=== PATIENT | female | born 1970 | race Caucasian/White ===

== ENCOUNTER 2019-11-18 08:13 | Inpatient (IN) | payer BC ==
[~2019-11-18] VITALS: Ht 162.6 cm; Wt 70.4 kg
[2019-11-18] MEDS ORDERED: fentaNYL PF VIAL 100 MCG/2 ML VIAL IVP ONE (08:30)
[2019-11-18] MEDS ORDERED: IV NORMAL SALINE 1000ML BAG 1,000 ML IV ONE ×2 (08:30→11:15)
[2019-11-18] MEDS ORDERED: ONDANSETRON PF 4 MG/2 ML VIAL. IVP ONE (08:30)
[2019-11-18] MEDS ORDERED: KETOROLAC 30 MG/ML VIAL. IVP ONE (08:45)
--- NOTE | 2019-11-18 08:45 | PHYS DOC ---
Past Medical History Past Medical History: No Pertinent History Past Surgical History: , Other Additional Past Surgical Histo: uterine ablation Smoking Status: Never Smoker Alcohol Use: Occasionally General Adult EDM: Chief Complaint: MECHANICAL FALL HPI: HPI: Patient is a 49 year old female who was brought here by EMS from home for evaluation of left-sided rib pain, back pain after she fell in the bathroom. Patient says she was taking a shower, slipped, twisted her left ankle and fell down on her left side, hit her rib cage on the floor. Patient denies any head or neck injury, complaint of upper and lower back pain, denies any pelvic pain, no hip pain. Patient denies any extremity pain. Patient has been able to walk without any problem. Patient denies any loss of consciousness. Patient was given small amount of ketamine by EMS on route. Review of Systems: Review of Systems: Constitutional: Denies fever or chills. [] Eyes: Denies change in visual acuity. [] HENT: Denies nasal congestion or sore throat. [] Respiratory: Denies cough or shortness of breath. [] Cardiovascular: Denies chest pain or edema. [] GI: Denies abdominal pain, nausea, vomiting, bloody stools or diarrhea. [] : Denies dysuria. [] Musculoskeletal: Positive for left side rib pain, upper and lower back pain. Integument: Denies rash. [] Neurologic: Denies headache, focal weakness or sensory changes. [] Endocrine: Denies polyuria or polydipsia. [] Lymphatic: Denies swollen glands. [] Psychiatric: Denies depression or anxiety. [] Heart Score: Risk Factors: Risk Factors: DM, Current or recent (<one month) smoker, HTN, HLP, family history of CAD, obesity. Risk Scores: Score 0 - 3: 2.5% MACE over next 6 weeks - Discharge Home Score 4 - 6: 20.3% MACE over next 6 weeks - Admit for Clinical Observation Score 7 - 10: 72.7% MACE over next 6 weeks - Early Invasive Strategies Current Medications: Current Medications Medications (Trade) Dose Ordered Sig/Jb Start Time Stop Time Status Last Admin Dose Admin Fentanyl Citrate (Fentanyl 2ml Vial) 100 mcg 1X ONCE 11/18/19 08:30 11/18/19 08:31 DC Ketorolac Tromethamine (Toradol 30mg Vial) 30 mg 1X ONCE 11/18/19 08:45 11/18/19 08:46 UNV Ondansetron HCl (Zofran) 4 mg 1X ONCE 11/18/19 08:30 11/18/19 08:31 DC 11/18/19 08:36 4 MG Sodium Chloride 1,000 ml @ 1,000 mls/hr 1X ONCE 11/18/19 08:30 11/18/19 09:29 11/18/19 08:33 1,000 MLS/HR Allergies: Allergies: Allergies Coded Allergies Type Severity Reaction Last Updated Verified No Known Drug Allergies 11/18/19 No Physical Exam: PE: Constitutional: Well developed, well nourished, no acute distress, non-toxic appearance. [] HENT: Normocephalic, atraumatic, bilateral external ears normal, oropharynx moist, no oral exudates, nose normal. [] Eyes: PERRLA, EOMI, conjunctiva normal, no discharge. [] Neck: Normal range of motion, no tenderness, supple, no stridor. [] Cardiovascular:Heart rate regular rhythm, no murmur [] Lungs & Thorax: Bilateral breath sounds clear to auscultation [] Abdomen: Bowel sounds normal, soft, no tenderness, no masses, no pulsatile masses. [] Skin: Warm, dry, no erythema, no rash. [] Back: There is a small skin abrasion on left lateral lower rib cage, there is no crepitus. There is tenderness to palpation in the T11 and T12 area, no bony step-off. Extremities: No tenderness, no cyanosis, no clubbing, ROM intact, no edema. [] Neurologic: Alert and oriented X 3, normal motor function, normal sensory function, no focal deficits noted. [] Psychologic: Affect normal, judgement normal, mood normal. [] Current Patient Data: Vital Signs: Vital Signs Date Time Temp Pulse Resp B/P (MAP) Pulse Ox O2 Delivery O2 Flow Rate FiO2 11/18/19 08:25 97.5 52 20 97/53 (68) 99 Room Air 97.5 EKG: EKG: [] Radiology/Procedures: Radiology/Procedures: [][facility] [address] [place] [address] IMAGING REPORT Signed PATIENT: JAMIE KEITH ACCOUNT: [id number] : 1970 LOCATION: ER AGE: 49 SEX: F EXAM STATUS: REG ER ORD. PHYSICIAN: RICARDO HERRERA DO REASON: FELL IN THE SHOWER, LEFT SIDE CHEST PAIN PROCEDURE: CT CHEST WO CONTRAST CT CHEST WO CONTRAST, CT THORACIC SPINE WO CONTRAST, CT LUMBAR SPINE WO CONTRAST History: Trauma. Left chest and back pain. Technique: CT of the chest were performed with intravenous contrast. Coronal and sagittal reconstructions were performed. CT thoracic and lumbar spine was obtained. Coronal and sagittal reconstructions were performed. Exposure: One or more of the following individualized dose reduction techniques were utilized for this examination: 1. Automated exposure control 2. Adjustment of the mA and/or kV according to patient size 3. Use of iterative reconstruction technique. Comparison: None Findings: Chest: Residual thymus within the anterior mediastinum. No evidence of anterior mediastinal hematoma. No aortic intramural hematoma. No pathologic lymphadenopathy. Small left pneumothorax. Left lower lobe posterior linear opacities, likely atelectasis. No consolidation or pleural effusion. 4 mm right lower lobe pulmonary nodule (series 2 image 40). 2 mm right upper lobe pulmonary nodule (image 10). 3 mm left lower lobe pulmonary nodule (image 36). Upper abdomen: The imaged upper abdomen is unremarkable. Bones: Nondisplaced left posterior 10th rib fracture. There is adjacent subcutaneous gas. Thoracic spine CT: Normal vertebral body height and alignment. No fracture. Mild degenerative disc changes. Mild facet arthropathy. No significant canal narrowing. No neuroforaminal narrowing. Lumbar spine CT: Normal vertebral body height and alignment. No fracture. Mild multilevel degenerative disc changes most prominent L4-L5 and L5-S1. Moderate lower lumbar facet arthropathy most prominent L5-S1. No significant canal narrowing. Multilevel neuroforaminal narrowing most prominent L5-S1. Impression: Chest CT: 1. Small left pneumothorax. 2. Acute left 10th posterior rib fracture with adjacent subcutaneous gas. 3. Small pulmonary nodules. Recommend one-year follow-up if high risk. Thoracolumbar spine CT: 1. No acute fracture or subluxation of the thoracolumbar spine. FOR INTERNAL CODING PURPOSES Critical result: Findings discussed with RICARDO HERRERA at 11/18/2019 9:42 AM. RESULT CODE: (C) Electronically signed by: Thaddeus Hernandez DO (11/18/2019 9:42 AM) [id number] DICTATED and SIGNED BY: THADDEUS HERNANDEZ DO DATE: 11/18/19941 Course & Med Decision Making: Course & Med Decision Making Pertinent Labs and Imaging studies reviewed. (See chart for details) Patient is a 49-year-old female who was evaluated in the ER due to a fall in the bathroom this morning, she sustained a small pneumothorax, with 1 broken rib #10. Patient will be admitted to hospital for observation. Discussed with trauma surgeon Dr. Mcfarland, who will see patient in hospital. Discussed with Dr. Cabrera who agrees to admit the patient to hospitalist service. Jett Disclaimer: Jett Disclaimer: This electronic medical record was generated, in whole or in part, using a voice recognition dictation system. Departure Departure Impression: Primary Impression: Pneumothorax on left Additional Impression: Left rib fracture Disposition: ADMITTED INPATIENT Admitting Physician: SAMUELS (DR. CABRERA) Condition: STABLE Referrals: NO PCP (PCP) Justicifation of Admission Dx: Justifications for Admission: Justification of Admission Dx: N/A RICARDO HERRERA DO Nov 18, 2019 08:45
[2019-11-18] MEDS ORDERED: diazePAM 5 MG TABLET PO ONE (09:30)
--- NOTE | 2019-11-18 09:45 | RAD ---
CT CHEST WO CONTRAST, CT THORACIC SPINE WO CONTRAST, CT LUMBAR SPINE WO CONTRAST History: Trauma. Left chest and back pain. Technique: CT of the chest were performed with intravenous contrast. Coronal and sagittal reconstructions were performed. CT thoracic and lumbar spine was obtained. Coronal and sagittal reconstructions were performed. Exposure: One or more of the following individualized dose reduction techniques were utilized for this examination: 1. Automated exposure control 2. Adjustment of the mA and/or kV according to patient size 3. Use of iterative reconstruction technique. Comparison: None Findings: Chest: Residual thymus within the anterior mediastinum. No evidence of anterior mediastinal hematoma. No aortic intramural hematoma. No pathologic lymphadenopathy. Small left pneumothorax. Left lower lobe posterior linear opacities, likely atelectasis. No consolidation or pleural effusion. 4 mm right lower lobe pulmonary nodule (series 2 image 40). 2 mm right upper lobe pulmonary nodule (image 10). 3 mm left lower lobe pulmonary nodule (image 36). Upper abdomen: The imaged upper abdomen is unremarkable. Bones: Nondisplaced left posterior 10th rib fracture. There is adjacent subcutaneous gas. Thoracic spine CT: Normal vertebral body height and alignment. No fracture. Mild degenerative disc changes. Mild facet arthropathy. No significant canal narrowing. No neuroforaminal narrowing. Lumbar spine CT: Normal vertebral body height and alignment. No fracture. Mild multilevel degenerative disc changes most prominent L4-L5 and L5-S1. Moderate lower lumbar facet arthropathy most prominent L5-S1. No significant canal narrowing. Multilevel neuroforaminal narrowing most prominent L5-S1. Impression: Chest CT: 1. Small left pneumothorax. 2. Acute left 10th posterior rib fracture with adjacent subcutaneous gas. 3. Small pulmonary nodules. Recommend one-year follow-up if high risk. Thoracolumbar spine CT: 1. No acute fracture or subluxation of the thoracolumbar spine. FOR INTERNAL CODING PURPOSES Critical result: Findings discussed with RICARDO HERRERA at 11/18/2019 9:42 AM. RESULT CODE: (C) Electronically signed by: Thaddeus Hernandez DO (11/18/2019 9:42 AM) [id number]
[2019-11-18] MEDS ORDERED: ACETAMINOPHEN 325 MG TABLET. PO PRN (11:30)
[2019-11-18] MEDS ORDERED: ONDANSETRON PF 4 MG/2 ML VIAL. IV PRN (11:30)
[2019-11-18 11:47] LABS: BASO % 0 % (0-3); EOS # 0.1 x10^3/uL (0.0-0.7); EOS % 1 % (0-3); HEMATOCRIT 39.4 % (36.0-47.0); HEMOGLOBIN 13.2 g/dL (12.0-15.5); LYMPH # 0.9 x10^3/uL (1.0-4.8); LYMPH % 8 % (24-48); MEAN CORPUSCULAR HEMOGLOBIN 31 pg (25-35); MEAN CORPUSCULAR HGB CONC 34 g/dL (31-37); MEAN CORPUSCULAR VOLUME 93 fL (79-100); MONO # 0.7 x10^3/uL (0.0-1.1); MONO % 6 % (0-9); NEUT # 9.9 x10^3/uL (1.8-7.7); NEUT % 85 % (31-73); PLATELET COUNT 223 x10^3/uL (140-400); RED BLOOD COUNT 4.23 x10^6/uL (3.50-5.40); WHITE BLOOD COUNT 11.6 x10^3/uL (4.0-11.0)
[2019-11-18 11:55] LABS: CALCIUM 8.3 mg/dL (8.5-10.1); CREATININE 0.9 mg/dL (0.6-1.0); GFR 66.3; POTASSIUM 4.2 mmol/L (3.5-5.1)
[2019-11-18 12:01] LABS: ALBUMIN 3.5 g/dL (3.4-5.0); ALBUMIN/GLOBULIN RATIO 1.3 (1.0-1.7); TOTAL BILIRUBIN 0.3 mg/dL (0.2-1.0); TOTAL PROTEIN 6.2 g/dL (6.4-8.2)
[2019-11-18 13:01] LABS: % LYMPHS 6 % (24-48); % MONOS 4 % (0-10); % SEGS 90 % (35-66); PLT ESTIMATE ADEQUATE (ADEQUATE)
--- NOTE | 2019-11-18 13:51 | PDOC1 ---
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 [facility] Basically she slipped in the shower and fell and struck her side She is developed shortness of breath and a lot of pain Rates her pain at 9 out of 10 Worse with deep breaths better with sitting still She presents the ER for evaluation We did a chest x-ray which is showing a broken rib on the left #10 She also has a small pneumothorax on the left I discussed the case with ER physician Organ with patient and give her pain management and consult pulmonary medicine for a second opinion Past Medical/Surgical History: PMH/PSH: Past Medical History: No Pertinent History Past Surgical History: , Other Additional Past Surgical Histo: uterine ablation Smoking Status: Never Smoker Alcohol Use: Occasionally Allergies: Allergies: Coded Allergies: No Known Drug Allergies (Unverified , 11/18/19) Family History: Family History: Hypertension Social History: Social History: 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[facility] [employer] She does not drink smoke or take drugs Current Medications: Current Medications Current Medications Fentanyl Citrate (Fentanyl 2ml Vial) 100 mcg 1X ONCE IVP ; Start 11/18/19 at 08:30; Stop 11/18/19 at 08:31; Status DC Ondansetron HCl (Zofran) 4 mg 1X ONCE IVP Last administered on 11/18/19at 08:36; Start 11/18/19 at 08:30; Stop 11/18/19 at 08:31; Status DC Sodium Chloride 1,000 ml @ 1,000 mls/hr 1X ONCE IV Last administered on 10/29 05/19at 08:33; Start 11/18/19 at 08:30; Stop 11/18/19 at 11:39; Status DC Ketorolac Tromethamine (Toradol 30mg Vial) 30 mg 1X ONCE IVP Last administered on 11/18/19at 08:45; Start 11/18/19 at 08:45; Stop 11/18/19 at 08:46; Status DC Diazepam (Valium) 5 mg 1X ONCE PO Last administered on 11/18/19at 09:24; Start 11/18/19 at 09:30; Stop 11/18/19 at 09:31; Status DC Sodium Chloride 1,000 ml @ 1,000 mls/hr 1X ONCE IV ; Start 11/18/19 at 11:15; Stop 11/18/19 at 12:14; Status DC Ondansetron HCl (Zofran) 4 mg PRN Q8HRS PRN IV NAUSEA/VOMITING; Start 11/18/19 at 11:30; Stop 11/19/19 at 11:29 Acetaminophen (Tylenol) 650 mg PRN Q4HRS PRN PO FEVER > 100.3'F; Start 11/18/19 at 11:30; Stop 11/19/19 at 11:29 Ketorolac Tromethamine (Toradol 15mg Vial) 15 mg Q6HRS PRN IVP PAIN; Start 11/18/19 at 11:30; Stop 11/23/19 at 11:29 ROS: Review of Systems Review of System REVIEW OF SYSTEMS: GENERAL: Denies weakness SKIN: No bruising, hair changes or rashes. EYES: No blurred, double or loss of vision. NOSE AND THROAT: No history of nosebleeds, hoarseness or sore throat. HEART: No history of palpitations, chest pain or shortness of breath on exertion. LUNGS: Complains of pain with inspiration and shortness of breath GI; no constipation GENITOURINARY: No history of frequency, urgency, hesitancy or nocturia. NEUROLOGIC: Denies history of numbness, tingling, or tremor. PSYCHIATRIC: No history of panic, anxiety or depression. ENDOCRINE: No history of heat or cold intolerance, polyuria or polydipsia. EXTREMITIES: Denies joint pain, pain on walking or stiffness. Physical Exam: Vital Signs: Vital Signs Date Time Temp Pulse Resp B/P (MAP) Pulse Ox O2 Delivery O2 Flow Rate FiO2 11/18/19 11:31 60 18 98 11/18/19 08:25 97.5 97/53 (68) Room Air 97.5 Physcial Exam: GEN: No apparent distress. Alert and oriented HEENT: Normal cephalic, atraumatic, external auditory canals are patent EYES: Extraocular muscles are intact, pupil are equally round and reactive to light and accommodation MUSCULOSKELETAL: Well developed , well nourished, good range of motion ENDOCRINE: No thyromegaly was palpated LYMPHATICS: No cervical chain or axillary nodes were noted HEMATOPOIETIC: No bruising NECK: Supple, no JVD, no thyromegaly was noted LUNGS: Clear to auscultation in all lung [place] without rhonchi or wheezing HEART: RRR, S!, S2 present. Peripheral pulses intact, no obvious murmurs noted ABDOMEN: Soft, nontender. Positive bowel sounds, no organomegaly, normal bowel sounds EXTREMITIES: Without clubbing, cyanosis, or edema. Pedal pulses intact. Negative Homans sign NEUROLOGIC: Normal speech and tone. A&O x 3, moves all extremities, no obvious focal deficits PSYCHIATRIC: Normal affect, normal mood. Stable SKIN: No ulcerations or rashes, good skin turgor, no jaundice VASCULAR: Good capillary refill, neurovascular bundle appears to be intact Labs: Labs: Laboratory Tests Test 11/18/19 11:38 White Blood Count 11.6 x10^3/uL (4.0-11.0) Red Blood Count 4.23 x10^6/uL (3.50-5.40) Hemoglobin 13.2 g/dL (12.0-15.5) Hematocrit 39.4 % (36.0-47.0) Mean Corpuscular Volume 93 fL (79-100) Mean Corpuscular Hemoglobin 31 pg (25-35) Mean Corpuscular Hemoglobin Concent 34 g/dL (31-37) Red Cell Distribution Width 13.0 % (11.5-14.5) Platelet Count 223 x10^3/uL (140-400) Neutrophils (%) (Auto) 85 % (31-73) Lymphocytes (%) (Auto) 8 % (24-48) Monocytes (%) (Auto) 6 % (0-9) Eosinophils (%) (Auto) 1 % (0-3) Basophils (%) (Auto) 0 % (0-3) Neutrophils # (Auto) 9.9 x10^3/uL (1.8-7.7) Lymphocytes # (Auto) 0.9 x10^3/uL (1.0-4.8) Monocytes # (Auto) 0.7 x10^3/uL (0.0-1.1) Eosinophils # (Auto) 0.1 x10^3/uL (0.0-0.7) Basophils # (Auto) 0.0 x10^3/uL (0.0-0.2) Segmented Neutrophils % 90 % (35-66) Lymphocytes % 6 % (24-48) Monocytes % 4 % (0-10) Platelet Estimate Adequate (ADEQUATE) Sodium Level 141 mmol/L (136-145) Potassium Level 4.2 mmol/L (3.5-5.1) Chloride Level 109 mmol/L (98-107) Carbon Dioxide Level 24 mmol/L (21-32) Anion Gap 8 (6-14) Blood Urea Nitrogen 11 mg/dL (7-20) Creatinine 0.9 mg/dL (0.6-1.0) Estimated GFR (Cockcroft-Gault) 66.3 BUN/Creatinine Ratio 12 (6-20) Glucose Level 88 mg/dL (70-99) Calcium Level 8.3 mg/dL (8.5-10.1) Total Bilirubin 0.3 mg/dL (0.2-1.0) Aspartate Amino Transf (AST/SGOT) 20 U/L (15-37) Alanine Aminotransferase (ALT/SGPT) 23 U/L (14-59) Alkaline Phosphatase 73 U/L (46-116) Total Protein 6.2 g/dL (6.4-8.2) Albumin 3.5 g/dL (3.4-5.0) Albumin/Globulin Ratio 1.3 (1.0-1.7) Laboratory Tests Test 11/18/19 11:38 White Blood Count 11.6 x10^3/uL (4.0-11.0) Red Blood Count 4.23 x10^6/uL (3.50-5.40) Hemoglobin 13.2 g/dL (12.0-15.5) Hematocrit 39.4 % (36.0-47.0) Mean Corpuscular Volume 93 fL (79-100) Mean Corpuscular Hemoglobin 31 pg (25-35) Mean Corpuscular Hemoglobin Concent 34 g/dL (31-37) Red Cell Distribution Width 13.0 % (11.5-14.5) Platelet Count 223 x10^3/uL (140-400) Neutrophils (%) (Auto) 85 % (31-73) Lymphocytes (%) (Auto) 8 % (24-48) Monocytes (%) (Auto) 6 % (0-9) Eosinophils (%) (Auto) 1 % (0-3) Basophils (%) (Auto) 0 % (0-3) Neutrophils # (Auto) 9.9 x10^3/uL (1.8-7.7) Lymphocytes # (Auto) 0.9 x10^3/uL (1.0-4.8) Monocytes # (Auto) 0.7 x10^3/uL (0.0-1.1) Eosinophils # (Auto) 0.1 x10^3/uL (0.0-0.7) Basophils # (Auto) 0.0 x10^3/uL (0.0-0.2) Segmented Neutrophils % 90 % (35-66) Lymphocytes % 6 % (24-48) Monocytes % 4 % (0-10) Platelet Estimate Adequate (ADEQUATE) Sodium Level 141 mmol/L (136-145) Potassium Level 4.2 mmol/L (3.5-5.1) Chloride Level 109 mmol/L (98-107) Carbon Dioxide Level 24 mmol/L (21-32) Anion Gap 8 (6-14) Blood Urea Nitrogen 11 mg/dL (7-20) Creatinine 0.9 mg/dL (0.6-1.0) Estimated GFR (Cockcroft-Gault) 66.3 BUN/Creatinine Ratio 12 (6-20) Glucose Level 88 mg/dL (70-99) Calcium Level 8.3 mg/dL (8.5-10.1) Total Bilirubin 0.3 mg/dL (0.2-1.0) Aspartate Amino Transf (AST/SGOT) 20 U/L (15-37) Alanine Aminotransferase (ALT/SGPT) 23 U/L (14-59) Alkaline Phosphatase 73 U/L (46-116) Total Protein 6.2 g/dL (6.4-8.2) Albumin 3.5 g/dL (3.4-5.0) Albumin/Globulin Ratio 1.3 (1.0-1.7) Images: Images I reviewed the chest x-ray she does have a small pneumothorax on the left Assessment/Plan Assessment/Plan Fall with left 10th rib fracture with incidental finding of a small pneumothorax on the left Plan PRN Toradol Consult pulmonary PRN O2 Home meds DVT prophylaxis Full code Justicifation of Admission Dx: Justifications for Admission: Justification of Admission Dx: N/A CHRISTIAN LANDRY III DO Nov 18, 2019 13:51
[2019-11-18] MEDS: KETOROLAC 15 MG/ML VIAL. IVP PRN ×2 (14:43→20:54)
[2019-11-18 14:50] VITALS: BP 110/66
[2019-11-18] MEDS ORDERED: LEVO50TA5 PO (15:30)
[2019-11-18] MEDS ORDERED: LIOT5TAB4 PO (15:30)
[2019-11-18] MEDS ORDERED: NALT1TAB PO (15:30)
[2019-11-18] MEDS: diazePAM 5 MG TABLET PO PRN (15:45)
--- NOTE | 2019-11-18 16:35 | PDOC2 ---
CONSULT Date of Consult Date of Consult DATE: 11/18/19 TIME: 16:32 Reason for Consult Reason for Consult: Left 10th rib fracture small pneumothorax Referring Physician Referring Physician: Dary Identification/Chief Complaint Chief Complaint Left-sided chest pain Source Source: Patient History of Present Illness Reason for Visit: 49-year-old female who fell in the shower onto her left back developed difficulty breathing and significant pain denies any loss of consciousness Past Medical History Cardiovascular: No pertinent hx Pulmonary: No pertinent hx GI: No pertinent hx Heme/Onc: No pertinent hx Hepatobiliary: No pertinent hx Psych: No pertinent hx Musculoskeletal: Osteoarthritis Infectious disease: No pertinent hx ENT: No pertinent hx Renal/: No pertinent hx Endocrine: No pertinent hx Dermatology: No pertinent hx Past Surgical History Past Surgical History: No pertinent history Family History Family History: No Significant Social History No ALCOHOL: none Drugs: None Lives: with Family Current Problem List Problem List Problems Medical Problems: (1) Left rib fracture Status: Acute (2) Pneumothorax on left Status: Acute Current Medications Current Medications Current Medications Fentanyl Citrate (Fentanyl 2ml Vial) 100 mcg 1X ONCE IVP ; Start 11/18/19 at 08:30; Stop 11/18/19 at 08:31; Status DC Ondansetron HCl (Zofran) 4 mg 1X ONCE IVP Last administered on 11/18/19at 08:36; Start 11/18/19 at 08:30; Stop 11/18/19 at 08:31; Status DC Sodium Chloride 1,000 ml @ 1,000 mls/hr 1X ONCE IV Last administered on 11/18/19at 08:33; Start 11/18/19 at 08:30; Stop 11/18/19 at 11:39; Status DC Ketorolac Tromethamine (Toradol 30mg Vial) 30 mg 1X ONCE IVP Last administered on 11/18/19at 08:45; Start 11/18/19 at 08:45; Stop 11/18/19 at 08:46; Status DC Diazepam (Valium) 5 mg 1X ONCE PO Last administered on 11/18/19at 09:24; Start 11/18/19 at 09:30; Stop 11/18/19 at 09:31; Status DC Sodium Chloride 1,000 ml @ 1,000 mls/hr 1X ONCE IV ; Start 11/18/19 at 11:15; Stop 11/18/19 at 12:14; Status DC Ondansetron HCl (Zofran) 4 mg PRN Q8HRS PRN IV NAUSEA/VOMITING; Start 11/18/19 at 11:30; Stop 11/19/19 at 11:29 Acetaminophen (Tylenol) 650 mg PRN Q4HRS PRN PO FEVER > 100.3'F; Start 11/18/19 at 11:30; Stop 11/19/19 at 11:29 Ketorolac Tromethamine (Toradol 15mg Vial) 15 mg Q6HRS PRN IVP PAIN Last administered on 11/18/19at 14:43; Start 11/18/19 at 11:30; Stop 11/23/19 at 11:29 Diazepam (Valium) 5 mg PRN TID PRN PO ANXIETY Last administered on 11/18/19at 15:45; Start 11/18/19 at 14:00 Active Scripts Active Reported Liothyronine Sodium 5 Mcg Tablet 5 Mcg PO BID Contrave ER 8-90 mg Tablet (Naltrexone HCl/Bupropion HCl) 1 Each Tablet.er 2 Tab PO BID 30 Days Levothyroxine Sodium 50 Mcg Tablet 1 Tab PO DAILY Allergies Allergies: Coded Allergies: No Known Drug Allergies (Unverified , 11/18/19) ROS Respiratory: YES: Pleuritic Pain Physical Exam General: Alert, Oriented X3, Cooperative, mild distress HEENT: Atraumatic, PERRLA, EOMI Lungs: Clear to auscultation, Normal air movement Heart: Regular rate, No murmurs Abdomen: Normal bowel sounds, Soft, No tenderness Extremities: No edema Skin: No significant lesion Neuro: Normal speech Psych/Mental Status: Mental status NL Vitals VITALS Vital Signs Date Time Temp Pulse Resp B/P (MAP) Pulse Ox O2 Delivery O2 Flow Rate FiO2 11/18/19 15:18 Room Air 11/18/19 14:50 98.0 58 18 110/66 (81) 99 98.0 Labs Labs Laboratory Tests Test 11/18/19 11:38 White Blood Count 11.6 x10^3/uL (4.0-11.0) Red Blood Count 4.23 x10^6/uL (3.50-5.40) Hemoglobin 13.2 g/dL (12.0-15.5) Hematocrit 39.4 % (36.0-47.0) Mean Corpuscular Volume 93 fL (79-100) Mean Corpuscular Hemoglobin 31 pg (25-35) Mean Corpuscular Hemoglobin Concent 34 g/dL (31-37) Red Cell Distribution Width 13.0 % (11.5-14.5) Platelet Count 223 x10^3/uL (140-400) Neutrophils (%) (Auto) 85 % (31-73) Lymphocytes (%) (Auto) 8 % (24-48) Monocytes (%) (Auto) 6 % (0-9) Eosinophils (%) (Auto) 1 % (0-3) Basophils (%) (Auto) 0 % (0-3) Neutrophils # (Auto) 9.9 x10^3/uL (1.8-7.7) Lymphocytes # (Auto) 0.9 x10^3/uL (1.0-4.8) Monocytes # (Auto) 0.7 x10^3/uL (0.0-1.1) Eosinophils # (Auto) 0.1 x10^3/uL (0.0-0.7) Basophils # (Auto) 0.0 x10^3/uL (0.0-0.2) Segmented Neutrophils % 90 % (35-66) Lymphocytes % 6 % (24-48) Monocytes % 4 % (0-10) Platelet Estimate Adequate (ADEQUATE) Sodium Level 141 mmol/L (136-145) Potassium Level 4.2 mmol/L (3.5-5.1) Chloride Level 109 mmol/L (98-107) Carbon Dioxide Level 24 mmol/L (21-32) Anion Gap 8 (6-14) Blood Urea Nitrogen 11 mg/dL (7-20) Creatinine 0.9 mg/dL (0.6-1.0) Estimated GFR (Cockcroft-Gault) 66.3 BUN/Creatinine Ratio 12 (6-20) Glucose Level 88 mg/dL (70-99) Calcium Level 8.3 mg/dL (8.5-10.1) Total Bilirubin 0.3 mg/dL (0.2-1.0) Aspartate Amino Transf (AST/SGOT) 20 U/L (15-37) Alanine Aminotransferase (ALT/SGPT) 23 U/L (14-59) Alkaline Phosphatase 73 U/L (46-116) Total Protein 6.2 g/dL (6.4-8.2) Albumin 3.5 g/dL (3.4-5.0) Albumin/Globulin Ratio 1.3 (1.0-1.7) Laboratory Tests Test 11/18/19 11:38 White Blood Count 11.6 x10^3/uL (4.0-11.0) Red Blood Count 4.23 x10^6/uL (3.50-5.40) Hemoglobin 13.2 g/dL (12.0-15.5) Hematocrit 39.4 % (36.0-47.0) Mean Corpuscular Volume 93 fL (79-100) Mean Corpuscular Hemoglobin 31 pg (25-35) Mean Corpuscular Hemoglobin Concent 34 g/dL (31-37) Red Cell Distribution Width 13.0 % (11.5-14.5) Platelet Count 223 x10^3/uL (140-400) Neutrophils (%) (Auto) 85 % (31-73) Lymphocytes (%) (Auto) 8 % (24-48) Monocytes (%) (Auto) 6 % (0-9) Eosinophils (%) (Auto) 1 % (0-3) Basophils (%) (Auto) 0 % (0-3) Neutrophils # (Auto) 9.9 x10^3/uL (1.8-7.7) Lymphocytes # (Auto) 0.9 x10^3/uL (1.0-4.8) Monocytes # (Auto) 0.7 x10^3/uL (0.0-1.1) Eosinophils # (Auto) 0.1 x10^3/uL (0.0-0.7) Basophils # (Auto) 0.0 x10^3/uL (0.0-0.2) Segmented Neutrophils % 90 % (35-66) Lymphocytes % 6 % (24-48) Monocytes % 4 % (0-10) Platelet Estimate Adequate (ADEQUATE) Sodium Level 141 mmol/L (136-145) Potassium Level 4.2 mmol/L (3.5-5.1) Chloride Level 109 mmol/L (98-107) Carbon Dioxide Level 24 mmol/L (21-32) Anion Gap 8 (6-14) Blood Urea Nitrogen 11 mg/dL (7-20) Creatinine 0.9 mg/dL (0.6-1.0) Estimated GFR (Cockcroft-Gault) 66.3 BUN/Creatinine Ratio 12 (6-20) Glucose Level 88 mg/dL (70-99) Calcium Level 8.3 mg/dL (8.5-10.1) Total Bilirubin 0.3 mg/dL (0.2-1.0) Aspartate Amino Transf (AST/SGOT) 20 U/L (15-37) Alanine Aminotransferase (ALT/SGPT) 23 U/L (14-59) Alkaline Phosphatase 73 U/L (46-116) Total Protein 6.2 g/dL (6.4-8.2) Albumin 3.5 g/dL (3.4-5.0) Albumin/Globulin Ratio 1.3 (1.0-1.7) Images Images Chest CT shows left 10th rib fracture small pneumothorax Assessment/Plan Assessment/Plan Traumatic fall with rib fractures small pneumothorax patient not short of breath We will monitor this evening repeat chest x-ray in a.m. if resolved or not worsened should be able to be discharged home ANIKET SZYMANSKI MD Nov 18, 2019 16:35
[2019-11-18 19:00] VITALS: BP 112/68
[2019-11-18 23:00] VITALS: BP 111/64
[2019-11-19] MEDS: diazePAM 5 MG TABLET PO PRN (00:36)
[2019-11-19 03:00] VITALS: BP 92/60
[2019-11-19] MEDS: KETOROLAC 15 MG/ML VIAL. IVP PRN ×2 (03:02→10:39)
[2019-11-19 07:05] VITALS: BP 103/65
[2019-11-19 07:32] LABS: BILIRUBIN,URINE NEGATIVE (NEG); CLARITY,URINE CLEAR; COLOR,URINE YELLOW; NITRITE,URINE NEGATIVE (NEG); PROTEIN,URINE NEGATIVE (NEG-TRACE); UROBILINOGEN,URINE 0.2 mg/dL (0.2 mg/dL)
[2019-11-19 07:50] LABS: BACTERIA,URINE FEW /HPF (0-FEW); RBC,URINE 0 /HPF (0-2); SQUAMOUS EPITHELIAL CELL,UR FEW /LPF
--- NOTE | 2019-11-19 09:08 | RAD ---
CHEST PA LATERAL History: Reason: LEFT Pneumothorax / Spl. Instructions: / History: Comparison: CT chest November 18, 2019 Findings: Tiny left apical pneumothorax, unchanged. No consultation or pleural effusion. Normal heart size. Impression: 1. Tiny left apical pneumothorax, unchanged. Electronically signed by: Thaddeus Hernandez DO (11/19/2019 9:05 AM) [id number]
--- NOTE | 2019-11-19 09:48 | PDOC ---
SURGICAL PROGRESS NOTE Subjective Patient doing quite well no complaints Vital Signs Vital Signs Date Time Temp Pulse Resp B/P (MAP) Pulse Ox O2 Delivery O2 Flow Rate FiO2 11/19/19 08:00 Room Air 11/19/19 07:05 97.6 60 20 103/65 (78) 100 97.6 I&O Intake and Output 11/19/19 07:00 Intake Total 1240 ml Output Total 2 ml Balance 1238 ml Intake Oral 240 ml IV Total 1000 ml Output Urine Total 2 ml PATIENT HAS A VENTURA: No General: Alert, Oriented X3, Cooperative, No acute distress Lungs: Clear to auscultation, Normal air movement Abdomen: Normal bowel sounds, Soft, No tenderness Labs Laboratory Tests Test 11/18/19 11:38 11/19/19 07:15 White Blood Count 11.6 x10^3/uL (4.0-11.0) Red Blood Count 4.23 x10^6/uL (3.50-5.40) Hemoglobin 13.2 g/dL (12.0-15.5) Hematocrit 39.4 % (36.0-47.0) Mean Corpuscular Volume 93 fL (79-100) Mean Corpuscular Hemoglobin 31 pg (25-35) Mean Corpuscular Hemoglobin Concent 34 g/dL (31-37) Red Cell Distribution Width 13.0 % (11.5-14.5) Platelet Count 223 x10^3/uL (140-400) Neutrophils (%) (Auto) 85 % (31-73) Lymphocytes (%) (Auto) 8 % (24-48) Monocytes (%) (Auto) 6 % (0-9) Eosinophils (%) (Auto) 1 % (0-3) Basophils (%) (Auto) 0 % (0-3) Neutrophils # (Auto) 9.9 x10^3/uL (1.8-7.7) Lymphocytes # (Auto) 0.9 x10^3/uL (1.0-4.8) Monocytes # (Auto) 0.7 x10^3/uL (0.0-1.1) Eosinophils # (Auto) 0.1 x10^3/uL (0.0-0.7) Basophils # (Auto) 0.0 x10^3/uL (0.0-0.2) Segmented Neutrophils % 90 % (35-66) Lymphocytes % 6 % (24-48) Monocytes % 4 % (0-10) Platelet Estimate Adequate (ADEQUATE) Sodium Level 141 mmol/L (136-145) Potassium Level 4.2 mmol/L (3.5-5.1) Chloride Level 109 mmol/L (98-107) Carbon Dioxide Level 24 mmol/L (21-32) Anion Gap 8 (6-14) Blood Urea Nitrogen 11 mg/dL (7-20) Creatinine 0.9 mg/dL (0.6-1.0) Estimated GFR (Cockcroft-Gault) 66.3 BUN/Creatinine Ratio 12 (6-20) Glucose Level 88 mg/dL (70-99) Calcium Level 8.3 mg/dL (8.5-10.1) Total Bilirubin 0.3 mg/dL (0.2-1.0) Aspartate Amino Transf (AST/SGOT) 20 U/L (15-37) Alanine Aminotransferase (ALT/SGPT) 23 U/L (14-59) Alkaline Phosphatase 73 U/L (46-116) Total Protein 6.2 g/dL (6.4-8.2) Albumin 3.5 g/dL (3.4-5.0) Albumin/Globulin Ratio 1.3 (1.0-1.7) Urine Collection Type Unknown Urine Color Yellow Urine Clarity Clear Urine pH 6.0 (<5.0-8.0) Urine Specific [place] 1.015 (1.000-1.030) Urine Protein Negative mg/dL (NEG-TRACE) Urine Glucose (UA) Negative mg/dL (NEG) Urine Ketones (Stick) Negative mg/dL (NEG) Urine Blood Negative (NEG) Urine Nitrite Negative (NEG) Urine Bilirubin Negative (NEG) Urine Urobilinogen Dipstick 0.2 mg/dL (0.2 mg/dL) Urine Leukocyte Esterase Negative (NEG) Urine RBC 0 /HPF (0-2) Urine WBC 1-4 /HPF (0-4) Urine Squamous Epithelial Cells Few /LPF Urine Bacteria Few /HPF (0-FEW) Urine Mucus Mod /LPF Laboratory Tests Test 11/18/19 11:38 11/19/19 07:15 White Blood Count 11.6 x10^3/uL (4.0-11.0) Red Blood Count 4.23 x10^6/uL (3.50-5.40) Hemoglobin 13.2 g/dL (12.0-15.5) Hematocrit 39.4 % (36.0-47.0) Mean Corpuscular Volume 93 fL (79-100) Mean Corpuscular Hemoglobin 31 pg (25-35) Mean Corpuscular Hemoglobin Concent 34 g/dL (31-37) Red Cell Distribution Width 13.0 % (11.5-14.5) Platelet Count 223 x10^3/uL (140-400) Neutrophils (%) (Auto) 85 % (31-73) Lymphocytes (%) (Auto) 8 % (24-48) Monocytes (%) (Auto) 6 % (0-9) Eosinophils (%) (Auto) 1 % (0-3) Basophils (%) (Auto) 0 % (0-3) Neutrophils # (Auto) 9.9 x10^3/uL (1.8-7.7) Lymphocytes # (Auto) 0.9 x10^3/uL (1.0-4.8) Monocytes # (Auto) 0.7 x10^3/uL (0.0-1.1) Eosinophils # (Auto) 0.1 x10^3/uL (0.0-0.7) Basophils # (Auto) 0.0 x10^3/uL (0.0-0.2) Segmented Neutrophils % 90 % (35-66) Lymphocytes % 6 % (24-48) Monocytes % 4 % (0-10) Platelet Estimate Adequate (ADEQUATE) Sodium Level 141 mmol/L (136-145) Potassium Level 4.2 mmol/L (3.5-5.1) Chloride Level 109 mmol/L (98-107) Carbon Dioxide Level 24 mmol/L (21-32) Anion Gap 8 (6-14) Blood Urea Nitrogen 11 mg/dL (7-20) Creatinine 0.9 mg/dL (0.6-1.0) Estimated GFR (Cockcroft-Gault) 66.3 BUN/Creatinine Ratio 12 (6-20) Glucose Level 88 mg/dL (70-99) Calcium Level 8.3 mg/dL (8.5-10.1) Total Bilirubin 0.3 mg/dL (0.2-1.0) Aspartate Amino Transf (AST/SGOT) 20 U/L (15-37) Alanine Aminotransferase (ALT/SGPT) 23 U/L (14-59) Alkaline Phosphatase 73 U/L (46-116) Total Protein 6.2 g/dL (6.4-8.2) Albumin 3.5 g/dL (3.4-5.0) Albumin/Globulin Ratio 1.3 (1.0-1.7) Urine Collection Type Unknown Urine Color Yellow Urine Clarity Clear Urine pH 6.0 (<5.0-8.0) Urine Specific [place] 1.015 (1.000-1.030) Urine Protein Negative mg/dL (NEG-TRACE) Urine Glucose (UA) Negative mg/dL (NEG) Urine Ketones (Stick) Negative mg/dL (NEG) Urine Blood Negative (NEG) Urine Nitrite Negative (NEG) Urine Bilirubin Negative (NEG) Urine Urobilinogen Dipstick 0.2 mg/dL (0.2 mg/dL) Urine Leukocyte Esterase Negative (NEG) Urine RBC 0 /HPF (0-2) Urine WBC 1-4 /HPF (0-4) Urine Squamous Epithelial Cells Few /LPF Urine Bacteria Few /HPF (0-FEW) Urine Mucus Mod /LPF I have reviewed the following Chest x-ray reviewed shows no change in her tiny apical pneumothorax Problem List Problems Medical Problems: (1) Left rib fracture Status: Acute (2) Pneumothorax on left Status: Acute Assessment/Plan Status post fall with rib fracture small apical pneumothorax unchanged patient is asymptomatic Okay to be discharged home from surgical standpoint Justicifation of Admission Dx: Justifications for Admission: Justification of Admission Dx: N/A ANIKET SZYMANSKI MD Nov 19, 2019 09:48
[2019-11-19] MEDS ORDERED: MELO7.5T29 PO (10:36)
--- NOTE | 2019-11-19 10:45 | NUR ---
SW following. Discussed with RN, pt from home. Discharge order for home with self care. No further SW needs.
--- NOTE | 2019-11-19 11:06 | NUR ---
Discharge instructions and belongings reviewed with patient, verbalized understanding. Patient was escorted out via ambulation by Padmini STANTON
--- NOTE | 2019-11-19 12:41 | PDOC3 ---
Discharge Summary Visit Information Date of Admission: Nov 18, 2019 Date of Discharge: Nov 19, 2019 Admitting Diagnosis Comment: (1) Pneumothorax on left (2) Left rib fracture Final Diagnosis Problems Medical Problems: (1) Left rib fracture Status: Acute (2) Pneumothorax on left Status: Acute Brief Hospital Course Allergies Allergies Coded Allergies Type Severity Reaction Last Updated Verified No Known Drug Allergies 11/18/19 No Vital Signs Vital Signs Date Time Temp Pulse Resp B/P (MAP) Pulse Ox O2 Delivery O2 Flow Rate FiO2 11/19/19 08:00 Room Air 11/19/19 07:05 97.6 60 20 103/65 (78) 100 97.6 Lab Results Laboratory Tests Test 11/18/19 11:38 11/19/19 07:15 White Blood Count 11.6 x10^3/uL (4.0-11.0) Red Blood Count 4.23 x10^6/uL (3.50-5.40) Hemoglobin 13.2 g/dL (12.0-15.5) Hematocrit 39.4 % (36.0-47.0) Mean Corpuscular Volume 93 fL (79-100) Mean Corpuscular Hemoglobin 31 pg (25-35) Mean Corpuscular Hemoglobin Concent 34 g/dL (31-37) Red Cell Distribution Width 13.0 % (11.5-14.5) Platelet Count 223 x10^3/uL (140-400) Neutrophils (%) (Auto) 85 % (31-73) Lymphocytes (%) (Auto) 8 % (24-48) Monocytes (%) (Auto) 6 % (0-9) Eosinophils (%) (Auto) 1 % (0-3) Basophils (%) (Auto) 0 % (0-3) Neutrophils # (Auto) 9.9 x10^3/uL (1.8-7.7) Lymphocytes # (Auto) 0.9 x10^3/uL (1.0-4.8) Monocytes # (Auto) 0.7 x10^3/uL (0.0-1.1) Eosinophils # (Auto) 0.1 x10^3/uL (0.0-0.7) Basophils # (Auto) 0.0 x10^3/uL (0.0-0.2) Segmented Neutrophils % 90 % (35-66) Lymphocytes % 6 % (24-48) Monocytes % 4 % (0-10) Platelet Estimate Adequate (ADEQUATE) Sodium Level 141 mmol/L (136-145) Potassium Level 4.2 mmol/L (3.5-5.1) Chloride Level 109 mmol/L (98-107) Carbon Dioxide Level 24 mmol/L (21-32) Anion Gap 8 (6-14) Blood Urea Nitrogen 11 mg/dL (7-20) Creatinine 0.9 mg/dL (0.6-1.0) Estimated GFR (Cockcroft-Gault) 66.3 BUN/Creatinine Ratio 12 (6-20) Glucose Level 88 mg/dL (70-99) Calcium Level 8.3 mg/dL (8.5-10.1) Total Bilirubin 0.3 mg/dL (0.2-1.0) Aspartate Amino Transf (AST/SGOT) 20 U/L (15-37) Alanine Aminotransferase (ALT/SGPT) 23 U/L (14-59) Alkaline Phosphatase 73 U/L (46-116) Total Protein 6.2 g/dL (6.4-8.2) Albumin 3.5 g/dL (3.4-5.0) Albumin/Globulin Ratio 1.3 (1.0-1.7) Urine Collection Type Unknown Urine Color Yellow Urine Clarity Clear Urine pH 6.0 (<5.0-8.0) Urine Specific [place] 1.015 (1.000-1.030) Urine Protein Negative mg/dL (NEG-TRACE) Urine Glucose (UA) Negative mg/dL (NEG) Urine Ketones (Stick) Negative mg/dL (NEG) Urine Blood Negative (NEG) Urine Nitrite Negative (NEG) Urine Bilirubin Negative (NEG) Urine Urobilinogen Dipstick 0.2 mg/dL (0.2 mg/dL) Urine Leukocyte Esterase Negative (NEG) Urine RBC 0 /HPF (0-2) Urine WBC 1-4 /HPF (0-4) Urine Squamous Epithelial Cells Few /LPF Urine Bacteria Few /HPF (0-FEW) Urine Mucus Mod /LPF Laboratory Tests Test 11/19/19 07:15 Urine Collection Type Unknown Urine Color Yellow Urine Clarity Clear Urine pH 6.0 (<5.0-8.0) Urine Specific [place] 1.015 (1.000-1.030) Urine Protein Negative mg/dL (NEG-TRACE) Urine Glucose (UA) Negative mg/dL (NEG) Urine Ketones (Stick) Negative mg/dL (NEG) Urine Blood Negative (NEG) Urine Nitrite Negative (NEG) Urine Bilirubin Negative (NEG) Urine Urobilinogen Dipstick 0.2 mg/dL (0.2 mg/dL) Urine Leukocyte Esterase Negative (NEG) Urine RBC 0 /HPF (0-2) Urine WBC 1-4 /HPF (0-4) Urine Squamous Epithelial Cells Few /LPF Urine Bacteria Few /HPF (0-FEW) Urine Mucus Mod /LPF Brief Hospital Course Ms. Mcdonough is a 49 old female who presented with Status post fall with rib fracture small apical pneumothorax unchanged patient is asymptomatic, she was seen in consultation by Dr. Mcfarland from surgery. Repeat imaging studies were unremarkable and he deemed the patient appropriate for discharge from the surgical standpoint of view. Pain management was addressed with nonsteroidal anti-inflammatory drugs and the patient will be going home with meloxicam 7.5 mg twice daily as needed for pain. She has an upcoming travel to [place] and I have advised her against water rafting or any other strenuous sports. She acknowledged understanding of the instructions and signs and symptoms of alarm and when to seek medical attention was discussed prior to dismissal as well. Physical exam: Lungs clear to auscultation bilaterally cardiovascular S1-S2 regular rhythm no murmurs gallops or rubs Neurological status with no focal deficit Discharge Information Condition at Discharge: Improved Follow Up: Weeks Disposition/Orders: D/C to Home Scheduled Levothyroxine Sodium (Levothyroxine Sodium) 50 Mcg Tablet, 1 TAB PO DAILY for hypothyroid, #30 Ref 5 (Reported) Entered as Reported by: ASHLEY ALEXIS RN on 11/18/191529 Last Taken: Unknown Dose on 11/18/19599 Last Action: New Order on 11/18/191529 by ASHLEY ALEXIS RN Liothyronine Sodium (Liothyronine Sodium) 5 Mcg Tablet, 5 MCG PO BID for thyroid, (Reported) Entered as Reported by: ASHLEY ALEXIS RN on 11/18/191529 Last Taken: Unknown Dose on 11/18/19 06 Last Action: New Order on 11/18/191529 by ASHLEY ALEXIS RN Meloxicam (Meloxicam) 7.5 Mg Tablet, 7.5 MG PO BID for pain for 15 Days, #30 Prescribed by: REID MACIAS MD on 11/19/19 1036 Naltrexone HCl/Bupropion HCl (Contrave ER 8-90 mg Tablet) 1 Each Tablet.er, 2 TAB PO BID for weight loss for 30 Days, #120 Ref 0 (Reported) Entered as Reported by: ASHLEY ALEXIS RN on 11/18/191529 Last Taken: Unknown Dose on 11/18/19 0900 Last Action: New Order on 11/18/191529 by ASHLEY ALEXIS RN Justicifation of Admission Dx: Justifications for Admission: Justification of Admission Dx: N/A REID MACIAS MD Nov 19, 2019 12:41
== END 2019-11-19 11:07 | disposition home or self-care (01) | DRG 200 ==
LOC: ER 08:13 → ED HOLD 10:43 → 4 NORTH 12:29
PROVIDERS: ADMIT Internal Medicine; ATTEND Internal Medicine
DX: S27.0XXA Traumatic pneumothorax, initial encounter (principal); S22.32XA Fracture of one rib, left side, initial encounter for closed fracture; S99.912A Unspecified injury of left ankle, initial encounter; M19.90 Unspecified osteoarthritis, unspecified site; W18.2XXA Fall in (into) shower or empty bathtub, initial encounter; X50.1XXA Overexertion from prolonged static or awkward postures, initial encounter; Y93.E1 Activity, personal bathing and showering; Z82.49 Family history of ischemic heart disease and other diseases of the circulatory system; Z79.899 Other long term (current) drug therapy; Y93.89 Activity, other specified; Y92.89 Other specified places as the place of occurrence of the external cause; Y99.8 Other external cause status
CPT/HCPCS: 36415; 71046; 71250; 72128; 72131; 80053; 81001; 85007; 85025; 96361; 96374; 96375; J1885; J2405; J7030; 99285-25; G0378

== ENCOUNTER → 2020-11-23 | Outpatient (CLI) | payer BC ==
[~2020-11-23] MED LIST: LEVO50TA5 PO; LIOT5TAB4 PO; MELO7.5T29 PO; NALT1TAB PO
--- NOTE | 2020-11-23 16:15 | KCIC ---
Examination: CT chest without contrast HISTORY: History of pulmonary nodules COMPARISON: 11/18/2019 TECHNIQUE: Axial CT images of chest were performed contrast and coronal sagittal reformats performed Exposure: One or more of the following individualized dose reduction techniques were utilized for thi s examination: 1. Automated exposure control 2. Adjustment of the mA and/or kV according to patient size 3. Use of iterative reconstruction technique FINDINGS: The central airways are patent. The heart size grossly appears unremarkable. Examination limited lack of IV contrast. The ascending aorta measures 3.1 cm in transverse dimension. No radiologically signi ficant mediastinal lymphadenopathy. Small bilateral lung nodules with the largest measuring 4 mm in t he right lower lobe of the lung similar to prior exam. The visualized noncontrasted liver, spleen, gr ossly appears unremarkable Mild degenerative changes thoracic spine. IMPRESSION: 1.Small bilateral lung nodules with the largest measuring 4 mm in the right lower lobe of the lung si milar to prior exam. Per Fleischner Society guidelines for incidentally found solid nodules measuring less than 6 mm, no f ollow-up is necessary if patient is considered at low risk for lung cancer. If patient is considered to be at high risk, such as with history of smoking, then CT follow-up in about 12 months can be cons idered. Electronically signed by: Sergio Xie MD (11/23/2020 4:13 PM) [id number]
== END ==
LOC: KCIC CT 12:42
PROVIDERS: ATTEND Family Medicine
DX: R91.8 Other nonspecific abnormal finding of lung field (principal); M47.814 Spondylosis without myelopathy or radiculopathy, thoracic region
CPT/HCPCS: 71250